=== PATIENT | female | born 1980 | race Caucasian/White ===

== ENCOUNTER 2016-07-25 19:17 | Emergency (ER) | payer OTHER ==
[~2016-07-25] VITALS: Ht 152.4 cm; Wt 56.7 kg
--- NOTE | 2016-07-25 20:03 | NUR ---
pt to room, changed into gown. Pt c/o "I have metal object in my stomach." Pt seen by MD. Was instructed to given pt food upon entering room pt was getting re-dressed. Pt initially speaking calmly as conversation progressed pt became agitated. Pt sts " is there something going on that everyone is supporting a movement of oppression." Sts "I have this thing in my stomach and the doctor unable to hold a conversation." Sts " why wont you just reach in and take it out." Pt then became calm. Sts "thank you for listening to me."
--- NOTE | 2016-07-25 20:08 | NUR ---
Pt walking out of ER, attempted to discuss discharge paperwork. Pt refused to return to room. Pt refused to sign [facility] paperwork. Pt ambulated out of er with steady gait. No obvious signs of physical distress noted, no facial grimacing, no guarding, no moaning noted.
[2016-07-25 20:10] VITALS: BP 110/79
== END 2016-07-25 20:10 | disposition home or self-care (01) ==
LOC: ER 19:17
DX: F22 Delusional disorders (principal)
CPT/HCPCS: 99281; A4663